=== PATIENT | female | born 1990 | race Caucasian/White ===

== ENCOUNTER 2016-09-24 06:59 | Emergency (ER) | payer BC ==
[~2016-09-24] VITALS: Ht 157.5 cm; Wt 69.7 kg
[~2016-09-24 06:59] MED LIST: MACROBID100 MG PO; MOTRIN800 MG PO; ORTHO CYCLEN1 TABLET PO; PROAIR HFA8.5 GM IH
[2016-09-24 07:49] VITALS: BP 120/89
== END 2016-09-24 07:51 | disposition home or self-care (01) ==
LOC: EME 06:59
DX: T19.2XXA Foreign body in vulva and vagina, initial encounter (principal); F17.200 Nicotine dependence, unspecified, uncomplicated
CPT/HCPCS: 99281; 99284